=== PATIENT | female | born 1945 | race Caucasian/White ===

== ENCOUNTER 2018-07-31 10:13 | Emergency (ER) | payer OTHER ==
[~2018-07-31] VITALS: Ht 162.6 cm; Wt 76.7 kg
[2018-07-31] MEDS ORDERED: METFORMIN HCL500 M1 (10:20)
[2018-07-31] MEDS ORDERED: COZAAR100 MG (10:21)
[2018-07-31] MEDS ORDERED: ENALAPRIL MALE2.5 MG (10:21)
[2018-07-31] MEDS ORDERED: SKELAXIN800 MG PO (13:02)
[2018-07-31] MEDS ORDERED: DICLOFENAC SOD100 MG PO (13:02)
== END 2018-07-31 13:18 | disposition home or self-care (01) ==
LOC: ER 10:13
DX: M54.2 Cervicalgia (principal); M54.5 Low back pain